=== PATIENT | female | born 1985 | race Caucasian/White ===

== ENCOUNTER 2023-12-17 18:49 | Emergency (ER) | payer BC, SELFPAY ==
[2023-12-17 18:52] VITALS: BP 116/72
[2023-12-17 19:12] LABS: % Basophils 0.5 % (0-2); % Eosinophils 0.8 % (0-6); % Immature Granulocytes 0.2 % (0-0.5); % Lymphocytes 41.2 % (20.5-51.1); % Monocytes 8.6 % (1.7-9.3); % Neutrophils 48.7 % (42.2-75.2); Absolute Eosinophils 0.1 10^3/uL (0-0.7); Absolute Lymphocytes 2.4 10^3/uL (1.2-3.4); Absolute Monocytes 0.5 10^3/uL (0.1-0.6); Absolute Neutrophils 2.9 10^3/uL (1.4-6.5); Hemoglobin 13.3 g/dL (12.0-16.0); Mean Corpuscular Hgb 33.4 pg (27.0-31.0); Mean Corpuscular Volume 95.5 fL (81.0-99.0); Mean Platelet Volume 10.4 fL (7.4-10.4); Nucleated Red Blood Cells % 0 %; Platelet Count 184 10^3/uL (130-400); Red Blood Cell Count 3.98 10^6/uL (4.20-5.40); White Blood Cell Count 5.9 10^3/uL (4.8-10.8)
[2023-12-17 19:31] LABS: ALT (SGPT) 17 U/L (0-35); AST (SGOT) 28 U/L (14-36); Albumin 5.2 g/dl (3.5-5.0); Alkaline Phosphatase 51 U/L (38-126); Blood Urea Nitrogen 14 mg/dl (7-17); Calcium 10.4 mg/dl (8.4-10.2); Carbon Dioxide 23 mmol/L (22-30); Chloride 102 mmol/L (98-107); Erythrocyte Sed Rate 8 mm/hour (0-20); Glucose 89 mg/dl (70-99); Potassium 4.5 mmol/L (3.5-5.1); Sodium 138 mmol/L (135-145); Total Bilirubin 0.7 mg/dl (0.2-1.3); Total Protein 7.7 g/dl (6.3-8.2); eGFR > 60.00
[2023-12-17 19:40] LABS: C-Reactive Protein < 5.00 mg/L (0.0-10.00)
--- NOTE | 2023-12-17 20:35 | ED.GENMED ---
History of Present Illness
General
Chief Complaint: Numbness
Time Seen by Provider: 12/17/23 20:18
History of Present Illness
History of Present Illness:
HPI: The patient presents due to concerns for facial asymmetry and pain. On 12/06 she had Botox injection in [place]. Around 1 week later, she started having right-sided facial weakness to the point that she could not close the right upper
lid. She has some discomfort in the right side of the head and around the eye. She has been trying to tape her eye shut and she has been using [id number]-[id number] medication to keep her eye moist. She saw Dr. Kings shanks who suggested she come
into the emergency department for further evaluation. The lights have been bothering her. There has been no tick bites or EM type of rash.
EXAM:
GENERAL: Well appearing but appears very upset about her current clinical condition
HEENT: Moist oral mucosa
CARDIOVASCULAR: No murmurs, normal heart rate, regular rhythm, No chest wall tenderness
PULMONARY: No respiratory distress, breath sounds are clear and equal
ABDOMEN: Soft with no peritoneal signs, no tenderness
NEUROLOGIC: There are no sensory or extremity motor deficits, she has appropriate mental status and there is normal communication, there is evidence for right 7th nerve palsy and she cannot close the right upper lid, there is marked facial asymmetry
when she attempts to smile, there may be some very mild sensory deficits to the right side of the face
PSYCHIATRIC: Appropriate mental status, normal insight and judgement, but she appears upset
EXTREMITIES: Nontender, no edema, moves all extremities equally
SKIN: No rash, no lesions
TIME OF INITIAL ENCOUNTER: 8:30 PM
NUMBER AND COMPLEXITY OF PROBLEMS ADDRESSED AT THE ENCOUNTER
� Chronic conditions affecting care: No significant past medical history
� Acute Exacerbation and/or Progression of Chronic Illness: This is an acute problem
� Differential Diagnosis includes: Kyle's palsy, iatrogenic 7th nerve palsy related to Botox use, doubt CVA
AMOUNT AND/OR COMPLEXITY OF DATA TO BE REVIEWED AND ANALYZED
� I performed an independent evaluation of and my interpretation is:
EKG:
CT: CT head shows no acute abnormality
X-rays:
Laboratory Studies: CBC normal, chemistries unremarkable, CRP less than 5 Lyme pending,
Other:
� Review of other/old records: I reviewed CT of the abdomen pelvis that showed bilateral nephrolithiasis along with cholelithiasis and DDD of the lower thoracic spine
� Clinical information was obtained by an independent historian: I spoke to her who is a physician at bedside; I also spoke to Dr. Ku
� Prescriptions/Medications Considered but not given:
� Further testing considered but not performed:
RISK OF COMPLICATIONS AND/OR MORBIDITY OR MORTALITY OF PATIENT MANAGEMENT
� Social determinants of health affecting care: Lives at home
� Discussion with other providers: Dr. Ku and Dr. Tucker
� Escalation of care including admission/observation vs risk of discharge considered: The patient clinically has evidence for Kyle's palsy. I am placing her on valacyclovir and prednisone. Patient very concerned that it could
be something more serious such as CVA�CT head ordered.
Phy Exam
Physical Exam
Physical Exam:
See HPI
Course
Orders/Labs/Results
Orders:
Orders
12/17/23 18:57
CT Head W/o Iv Contrast Urgent
Comment:
Reason For Exam: numbness
12/17/23 19:05
C-Reactive Protein Urgent
Complete Blood Count/With Diff Urgent
Comprehensive Metabolic Panel Urgent
Erythrocyte Sed Rate Urgent
Lyme Progressive Urgent
12/17/23 20:35
Prednisone [Deltasone] 50 mg PO NOW STA
Valacyclovir HCl [Valtrex] 1,000 mg PO NOW STA
Abnormal Lab Results
12/17/23
19:05
RBC 3.98 L 10^6/uL
(4.20-5.40)
MCH 33.4 H pg
(27.0-31.0)
Calcium 10.4 H mg/dl
(8.4-10.2)
Albumin 5.2 H g/dl
(3.5-5.0)
12/17/23 19:05
12/17/23 19:05
Vital Signs
Initial and Last Documented VS:
Initial Vital Signs
Temp Pulse Resp BP Pulse Ox
98.2 F 70 18 116/72 96
12/17/23 18:52 12/17/23 18:52 12/17/23 18:52 12/17/23 18:52 12/17/23 18:52
Last Documented Vital Signs
Temp Pulse Resp BP Pulse Ox
98.2 F 71 18 86/59 100
12/17/23 18:52 12/17/23 21:01 12/17/23 18:52 12/17/23 21:01 12/17/23 21:01
*Critical Care Note
Total Time (30-74mins, 75-104mins- exclusive of procedures): Not Applicable
ED Attending Note
-
Portions of this chart may have been created with voice recognition software.� Occasional wrong word or��sound alike� substitutions may have occurred due to the inherent limitations of voice recognition software.
Discharge Plan
Departure
Patient Disposition: Home (Routine Discharge)
Date of Disposition: 12/17/23
Time of Disposition: 21:43
Patient with high blood pressure during this ER visit?: Yes
Discharge Problem:
Kyle's palsy
Instructions: Kyle's Palsy (DC)
Prescriptions:
New
prednisone 50 mg tablet
50 mg PO DAILY Qty: 6 0RF
valacyclovir 1 gram tablet
1,000 mg PO TID 7 Days Qty: 21 0RF
Referrals:
Isauro Tucker MD [Active] - Follow up in 5-7 days
Activity Restrictions/Additional Instructions:
I sent a prescription for prednisone and Valtrex to your pharmacy. I have given you the information for Dr. Tucker, the neurologist that I spoke to [facility]. Return here if worse or parents. Complete blood cell count is normal, C-reactive is normal,
chemistry levels are normal, Lyme testing is pending. Brain CT shows no acute abnormality. It is very important to keep the eye closed and lubricated with [id number] drops/gel.
Interventions
Interventions:
*Risk Screen - Suicide Last Done: 12/17/23 18:52
*General Assessment Last Done: 12/17/23 18:52
*Neglect/Abuse Screening Last Done: 12/17/23 18:52
Discharge Date and Time
Print Language: GEORGIAN
[2023-12-17] MEDS: VALTREX 1000 MG PO (21:00)
[2023-12-17] MEDS: DELTASONE 50 MG PO (21:00)
[2023-12-17 21:01] VITALS: BP 86/59
[2023-12-17 21:53] VITALS: BP 83/56
[2023-12-19 13:55] LABS: Lyme Antibody Screen, EIA Negative (Negative)
== END 2023-12-17 22:00 | disposition home or self-care (01) ==
LOC: EMR 18:49
PROVIDERS: EMERGENCY PHYSICIAN Emergency Medicine; FAMILY PHYSICIAN Family Medicine
DX: G51.0 Bell's palsy (principal)
CPT/HCPCS: 99284; 70450; 80053; 85025; 85652; 86140; 86618